=== PATIENT | female | born 1940 ===

== ENCOUNTER 2017-03-17 08:02 | Emergency (ER) | payer MEDICARE, OTHER ==
--- NOTE | 2017-03-17 08:57 | C.PDOC ---
History Of Present Illness The patient reports that she developed a "strange sensation that does not allow sleep" at 2am today. The patient reports that she took OTC medications without relief. The patient states that afterwards she developed pain to the Left arm. Denies trauma, fever, numbness, weakness, chest pain, SOB, nausea, vomiting, or travel. Chief Complaint (Nursing): Headache History Per: Patient Past Medical History Reviewed: Historical Data, Nursing Documentation, Vital Signs Vital Signs: Last Vital Signs Temp 97.0 F L 03/17/17 10:14 Pulse 66 03/17/17 10:14 Resp 12 03/17/17 10:14 BP 144/67 03/17/17 10:14 Pulse Ox 100 03/17/17 10:14 - Medical History PMH: No Chronic Diseases Family History: States: Unknown Family Hx - Social History Hx Alcohol Use: No Hx Substance Use: No - Immunization History Hx Tetanus Toxoid Vaccination: No Hx Influenza Vaccination: No Hx Pneumococcal Vaccination: No Review Of Systems Except As Marked, All Systems Reviewed And Found Negative. Musculoskeletal: Positive for: Other (joint pain) Physical Exam - Physical Exam Appears: Non-toxic, No Acute Distress Skin: Normal Color, Warm, Dry, No Rash Head: Atraumatic, Normacephalic Eye(s): bilateral: Normal Inspection, PERRL, EOMI Oral Mucosa: Moist Throat: Normal Neck: Normal ROM Chest: Symmetrical, No Tenderness Cardiovascular: Rhythm Regular, No Friction Rub, No Murmur Respiratory: Normal Breath Sounds, No Rales, No Rhonchi, No Wheezing Gastrointestinal/Abdominal: Normal Exam, Soft, No Tenderness Back: Normal Inspection, No CVA Tenderness Extremity: Normal ROM, No Tenderness, No Swelling ED Course And Treatment - Laboratory Results Result Diagrams: 03/17/17 09:11 03/17/17 09:11 Disposition - Disposition Referrals: Lan Angeles MD [Medical Doctor] - Disposition: HOME/ ROUTINE Disposition Time: 11:49 Condition: GOOD Additional Instructions: Follow up with the medical doctor within 1-2 days. Return if worsened. Instructions: Acute Headache (ED) Forms: [email or web address] ([place]inese) - Clinical Impression Clinical Impression: Headache
[2017-03-17 09:16] LABS: BASO # 0.1 K/uL (0.0-0.2); BASO % 2.5 % (0.0-2.0); EOS # 0.1 K/uL (0.0-0.7); EOS % 1.7 % (0.0-4.0); HEMOGLOBIN 14.2 g/dL (11.0-16.0); LYMPH # 1.2 K/uL (1.0-4.3); LYMPH % 36.2 % (20.0-40.0); MEAN CELL VOLUME 97.6 fL (81.0-99.0); MEAN CORPUSCULAR HEMOGLOBIN 33.6 pg (27.0-31.0); MEAN CORPUSCULAR HGB CONC 34.4 g/dL (33.0-37.0); MEAN PLATELET VOLUME 8.1 fL (7.2-11.7); MONO # 0.5 K/uL (0.0-0.8); MONO % 14.4 % (0.0-10.0); NEUT # 1.5 K/uL (1.8-7.0); NEUT % 45.2 % (50.0-75.0); NRBC % 0.2 % (0.0-2.0); RBC 4.23 Mil/uL (3.80-5.20); RED CELL DISTRIBUTION WIDTH 13.9 % (11.5-14.5); WHITE BLOOD COUNT 3.4 K/uL (4.8-10.8)
[2017-03-17 09:29] LABS: SQUAMOUS EPITHIAL 1 /hpf (0-5); URINE BACTERIA RARE (<OCC); URINE BILIRUBIN NEGATIVE (NEGATIVE); URINE BLOOD NEGATIVE (NEGATIVE); URINE CLARITY Hazy (Clear); URINE COLOR Straw (YELLOW); URINE GLUCOSE (UA) NORMAL (Normal); URINE LEUKOCYTE ESTERASE 1+ Leu/uL (Negative); URINE NITRATE NEGATIVE (NEGATIVE); URINE PROTEIN NEGATIVE (NEGATIVE); URINE UROBILINOGEN NORMAL mg/dL (0.2-1.0)
[2017-03-17 09:38] LABS: ALB/GLOB RATIO 1.2 (1.0-2.1); ALBUMIN 3.8 g/dL (3.5-5.0); ALT/SGPT 27 U/L (9-52); AST/SGOT 32 U/L (14-36); BLOOD UREA NITROGEN 12 mg/dL (7-17); CALCIUM 8.8 mg/dl (8.6-10.4); GFR AFRICAN-AMERICAN > 60; GFR NON-AFRICAN AMERICAN > 60
--- NOTE | 2017-03-17 09:55 | CT ---
PROCEDURE: CT HEAD WITHOUT CONTRAST. HISTORY: headache, ?dizziness COMPARISON: None available. TECHNIQUE: Axial computed tomography images were obtained through the head/brain without intravenous contrast. Radiation dose: Total exam DLP = 807.3 mGy-cm. This CT exam was performed using one or more of the following dose reduction techniques: Automated exposure control, adjustment of the mA and/or kV according to patient size, and/or use of iterative reconstruction technique. FINDINGS: HEMORRHAGE: No intracranial hemorrhage. BRAIN: No mass effect or edema. Mild atrophy is noted. Moderate white matter changes are also noted suggestive but nonspecific for chronic microvascular ischemic disease. VENTRICLES: Unremarkable. No hydrocephalus. CALVARIUM: Unremarkable. PARANASAL SINUSES: Mucosal thickening and air-fluid level noted in the maxillary sinus. Partial opacification of the ethmoid sinuses is also noted. MASTOID AIR CELLS: Unremarkable as visualized. No inflammatory changes. OTHER FINDINGS: None. IMPRESSION: No evidence of acute intracranial hemorrhage intracranial collection mass effect or midline shift. Mild volume loss and moderate white matter changes suggestive of chronic microvascular ischemic disease. Ethmoidal and maxillary sinuses mucosal disease.
[2017-03-17 10:15] VITALS: BP 144/67
--- NOTE | 2017-03-17 11:42 | RAD ---
PROCEDURE: CHEST RADIOGRAPH, 1 VIEW HISTORY: headache, weakness COMPARISON: None available. FINDINGS: LUNGS: Reticular opacities at the lung bases may represent scar tissue. The possibility of mild bronchiectasis in the lower lobe also should be considered. No evidence of infiltrate or consolidation in the lungs. [id number] hyperinflation of the lungs is noted. PLEURA: No pneumothorax or pleural fluid seen. CARDIOVASCULAR: Normal. OSSEOUS STRUCTURES: No significant abnormalities. VISUALIZED UPPER ABDOMEN: Normal. OTHER FINDINGS: None. IMPRESSION: No evidence of acute pulmonary disease. Chronic lung changes more prominent at the lower lobes.
[2017-03-17 11:56] VITALS: PULSE 84; RESP 20; TEMP 98; O2SAT 99
--- NOTE | 2017-03-18 13:29 | CARD ---
APPROVED REPORT EKG Measurement Heart [id number] VT [id number] <Conclusion> Normal sinus rhythm Possible Left atrial enlargement Left ventricular hypertrophy Cannot rule out Septal infarct, age undetermined Abnormal ECG
== END 2017-03-17 12:15 | disposition home or self-care (01) ==
LOC: C.ER 08:02
DX: R51 Headache (principal)